=== PATIENT | female | born 1955 ===

== ENCOUNTER 2021-04-25 04:07 | Day surgery (SDC) | payer BC, OTHER ==
[2021-04-23 13:34] VITALS: BMI 27.1
[2021-04-25] MEDS ORDERED: THROMBIN (BOVINE) 5,000 UNIT VIAL TP ONE (07:09)
[2021-04-25] MEDS ORDERED: PROPOFOL 20 ML ONE ×3 (08:50→09:41)
[2021-04-25] MEDS ORDERED: SUCCINYLCHOLINE CHLORIDE 200 MG/10 ML SYRINGE ONE (08:58)
[2021-04-25] MEDS ORDERED: LIDOCAINE HCL/PF 2% SDV 5ML VIAL ONE ×2 (09:00→10:10)
[2021-04-25] MEDS ORDERED: MIDAZOLAM HCL 2 MG/2 ML SINGLE DOSE VIAL ONE (09:00)
[2021-04-25] MEDS ORDERED: BUPIVACAINE HCL/PF 0.5% (5MG/ML) 10 ML VIAL ONE (09:08)
[2021-04-25] MEDS ORDERED: ceFAZolin SODIUM 1 GM VIAL IVPB ONE (09:20)
[2021-04-25] MEDS ORDERED: ceFAZolin SODIUM 1 GM VIAL ONE (09:24)
[2021-04-25] MEDS ORDERED: LIDOCAINE 1%/EPI 1:100000 (20 ML MULTI DOSE VIAL) IJ ONE ×2 (09:35)
[2021-04-25] MEDS ORDERED: BUPIVACAINE HCL/PF 0.5% (5MG/ML) 10 ML VIAL IJ ONE ×2 (09:35)
[2021-04-25] MEDS ORDERED: HYDROmorphone HCl 2 MG/ML VIAL ONE (09:43)
[2021-04-25] MEDS ORDERED: ONDANSETRON 4 MG/2 ML VIAL IVPUSH PRN (09:53)
[2021-04-25] MEDS ORDERED: oxyCODONE HCL 5 MG TABLET PO PRN (09:53)
[2021-04-25] MEDS ORDERED: LACTATED RINGERS SOLUTION 1,000 ML IV SCH (10:00)
[2021-04-25] MEDS ORDERED: ONDANSETRON 4 MG/2 ML VIAL ONE ×2 (10:06→16:09)
[2021-04-25] MEDS ORDERED: ACETAMINOPHEN INJECTION 100 ML IVPB ONE (13:38)
[2021-04-25] MEDS ORDERED: ACETAMINOPHEN 1000 MG/100 ML BAG IVPB ONE (14:23)
[2021-04-25 17:17] VITALS: BP 150/80; PULSE 70; TEMP 97.6
== END 2021-04-25 17:20 | disposition home or self-care (01) ==
LOC: JASU-SURG 04:07
PROVIDERS: ATTEND Surgery
PROC: 0GTG0ZZ Resection of Left Thyroid Gland Lobe, Open Approach (ICD-10-PCS; principal; 2021-04-25 09:30)
DX: C73 Malignant neoplasm of thyroid gland (principal)
CPT/HCPCS: 82962; 88307-TC; 94760